=== PATIENT | male | born 1990 | race African-American/Black ===

== ENCOUNTER 2018-01-04 00:11 | Emergency (ER) | payer SELFPAY ==
[~2018-01-04] VITALS: Ht 182.9 cm; Wt 122.5 kg
[2018-01-04 00:12] VITALS: BP 135/88
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
[2018-01-04] MEDS ORDERED: IBUPROFEN600 MG ORAL (01:18)
[2018-01-04] MEDS ORDERED: HYDROCODON-ACE1 EA15 ORAL (01:18)
[2018-01-04 01:29] VITALS: BP 133/85
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
== END 2018-01-04 03:00 | disposition home or self-care (01) ==
LOC: EMR 02:30
DX: S43.401A Unspecified sprain of right shoulder joint, initial encounter (principal); S60.221A Contusion of right hand, initial encounter; M79.641 Pain in right hand; W22.8XXA Striking against or struck by other objects, initial encounter; Y93.9 Activity, unspecified; Y92.9 Unspecified place or not applicable; Y99.9 Unspecified external cause status
CPT/HCPCS: 99284